=== PATIENT | female | born 1990 | race Caucasian/White ===

== ENCOUNTER 2021-04-27 17:50 | Outpatient (REF) | payer MEDICAID, SELFPAY ==
[2021-04-27 21:18] LABS: Anion Gap 7.1 mmol/L (3-11); BUN 10 mg/dL (7-18); CO2 26.9 mmol/L (21.0-32.0); CREATININE 0.6 mg/dL (0.55-1.02); Calcium 8.4 mg/dL (8.5-10.1); Calculated LDL 72 mg/dL (<100); Chloride 106 mmol/L (98-107); Cholesterol 135 mg/dL (<200); Glucose 87 mg/dL (74-106); HDL Cholesterol 54 mg/dL (40-60); Potassium 4.4 mmol/L (3.5-5.1); Sodium 140 mmol/L (136-145); Triglyceride 46 mg/dL (<150)
[2021-05-01 09:20] LABS: Hepatitis C Ab w Rflx HCV PCR Negative (Negative)
== END 2021-04-27 17:51 | disposition home or self-care (01) ==
LOC: NCHCN 17:50
PROVIDERS: PCP Nurse Practitioner Family; Visit Provider Nurse Practitioner Family
DX: Z00.00 Encounter for general adult medical examination without abnormal findings (principal)
CPT/HCPCS: 80048; 80061; 86803

== ENCOUNTER 2021-06-15 17:09 | Outpatient (REF) | payer MEDICAID, SELFPAY ==
--- NOTE | 2021-06-15 16:30 | PAPFT_PTH ---
PATIENT: Alexandra Marte LOC: [facility]#:[id number] AGE/SX: 31/F ROOM: RE06/15/[address]: Tess Buckner : 1990 BED: DIS: 06/15/2021 SPEC #: [id number] RECD: 06/16/21 13:07 STATUS: IVELISSE REJair #: [id number] VINOD: 06/15/21 16:[address]: Tess Buckner DEPT: [facility] Cytology RECD BY: Corazon Arrington Tissues: 1 - CX/ENDOCX FOR PAP SMEARS Procedures: PAP THIN PREP/[facility] Screening HPV DNA PROBE Comments: [id number] (CHLAMYDIA/GC)
[2021-06-19 15:33] LABS: Chlamydia Result Negative (Negative); GC Result Negative (Negative)
== END 2021-06-15 17:10 | disposition home or self-care (01) ==
LOC: NCHCN 17:09
PROVIDERS: PCP Nurse Practitioner Family; Visit Provider Nurse Practitioner Family
DX: Z12.4 Encounter for screening for malignant neoplasm of cervix (principal); Z11.3 Encounter for screening for infections with a predominantly sexual mode of transmission; Z11.51 Encounter for screening for human papillomavirus (HPV)
CPT/HCPCS: 87491; 87591; 88142; 87624

== ENCOUNTER 2022-06-21 14:19 | Outpatient (REF) | payer MEDICAID, SELFPAY ==
[2022-06-21 20:40] LABS: HCT 38.2 % (36.0-46.0); HGB 13.4 g/dL (11.2-15.7); MCH 30.5 pg (27.0-33.0); MCHC 35.1 % (32.0-36.0); MCV 87 fL (80-95); MPV 10.7 fL (8.0-11.0); Platelet Count 226 10^3/uL (130-400); RBC 4.39 10^6/uL (3.93-5.22); RDW 12.2 % (11.7-14.6); RDW-SD 38.8 fL; WBC 5.77 10^3/uL (4.4-10.8)
[2022-06-21 21:05] LABS: ALT 24 U/L (14-59); AST 19 U/L (15-37); Albumin 3.9 g/dL (3.4-5.0); Alkaline Phosphatase 47 U/L (46-116); Anion Gap 8.6 mmol/L (3-11); BUN 14 mg/dL (7-18); Bilirubin, Total 0.7 mg/dL (0.2-1.0); CO2 26.4 mmol/L (21.0-32.0); CREATININE 0.7 mg/dL (0.55-1.02); Calcium 8.3 mg/dL (8.5-10.1); Chloride 104 mmol/L (98-107); Glucose 131 mg/dL (74-106); Potassium 3.9 mmol/L (3.5-5.1); Sodium 139 mmol/L (136-145); TSH (W/Ref FT4) 0.97 uIU/mL (0.36-3.74); Total Protein 7.2 g/dL (6.4-8.2)
[2022-06-22 10:24] LABS: Hemoglobin A1C 5.6 % (<5.7)
== END 2022-06-21 14:20 | disposition home or self-care (01) ==
LOC: NCHCN 14:19
PROVIDERS: PCP Nurse Practitioner Family; Visit Provider Nurse Practitioner Family
DX: R23.2 Flushing (principal); R73.9 Hyperglycemia, unspecified; E83.51 Hypocalcemia
CPT/HCPCS: 80053; 85027; 83036; 84443

== ENCOUNTER 2022-10-01 16:40 | Outpatient (REF) | payer MEDICAID, SELFPAY | END 2022-10-01 16:41 | disposition home or self-care (01) | LOC: NCHCN 16:40 | PROVIDERS: PCP Nurse Practitioner Family; Visit Provider Nurse Practitioner Family | DX: N39.0 Urinary tract infection, site not specified (principal); F90.0 Attention-deficit hyperactivity disorder, predominantly inattentive type | CPT/HCPCS: 87086 ==

== ENCOUNTER 2023-01-02 16:29 | Outpatient (REF) | payer MEDICAID, SELFPAY ==
[2023-01-03 18:53] LABS: Parathyroid Hormone,Intact 32 pg/mL (19-88)
== END 2023-01-02 16:30 | disposition home or self-care (01) ==
LOC: NCHCN 16:29
PROVIDERS: PCP Nurse Practitioner Family; Visit Provider Registered Nurse
DX: E83.51 Hypocalcemia (principal)
CPT/HCPCS: 82306; 83735; 83970

== ENCOUNTER 2023-02-28 15:24 | Outpatient (REF) | payer MEDICAID, SELFPAY ==
--- OUTSIDE RECORDS SUMMARY | 2023-02-28 15:26 | XMS_ITS | CCD ---
Author Name Unknown Address [address] [place] [address] [id number] Organization Unknown Address [address] [place] [address] [id number] Care Team Providers Care Cargo Checker Name Role Phone JODYGOOD MORRISON Nhung Attending Physician [phone] Vital Signs Vital Sign Value Unit Date/Time Recent/Initial ? BMI (Body Mass Index) 27.41 kg/m^2 11/09/2022 15: 14 Initial VS Weight Measured 175 lbs 11/09/2022 15:14 Ini tial VS Height 67 in 11/09/2022 15:14 Initial VS BSA (Body Surface Area) 1.94 m^2 11/09/2022 1 5:14 Initial VS BP Systolic 108 mmHg 11/16/2022 10:15 Initial VS BP Diastolic 60 mmHg 11/16/2022 10:15 Initia l VS Respiratory Rate 18 bpm 11/16/2022 10:15 In itial VS Heart Rate 80 bpm 11/16/2022 10:15 Initial VS O2 % BldC Oximetry 97 % 11/16/2022 10:15 Initial VS Body Temperature 36 degrees 11/16/2022 10:15 In itial VS Allergies Allergy Code Allergy Type Reaction Status LORTAB 5/325 [id number] Drug allergy Active Procedures Procedure Code Procedure Type Date Bx, Soft Tissue, Back/Flank; Superficial 14489 CPT 11/16/2022 Anesthesia, Head, Neck, Post Trunk Integumentary, Muscles/Nerves 41551 CPT 11/16/2022 History of Immunizations Unknown or Not Available. Problems Unknown or Not Available. 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 Patient Decision Aids Unknown or Not Available. 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 If you have left the hospital and have any questions, please contact your primary care physician. Chief Complaint and Reason For Visit Unknown or Not Available. Function Status Unknown or Not Available. Plan of Care Unknown or Not Available. Referral/Transition of Care Unknown or Not Available.
--- OUTSIDE RECORDS SUMMARY | 2023-02-28 15:27 | XMS_ITS | CCD ---
Author Name Unknown Address [address] [place] [address] [id number] Organization Unknown Address [address] [place] [address] [id number] Care Team Providers Care Associate Material Handler Name Role Phone GOOD VERA Attending Physician [phone] [employer] [place] Rounding (Secondary) Physici an [phone] Vital Signs Unknown or Not Available. Allergies Unknown or Not Available. Procedures Unknown or Not Available. History of Immunizations Unknown or Not Available. Problems Unknown or Not Available. Results Unknown or Not Available. Active Medications Unknown or Not Available. Medications Administered During Visit Unknown or Not Available. Encounters Encounter Diagnosis Diagnosis Code Start Date Person consulting for explan ation of examination or test findings Z712 03/07/2022 Social History Unknown or Not Available. Patient Decision Aids Unknown or Not Available. Discharge Instructions You were admitted to [facility] on 03/07/2022 14:25 with a principal diagnosis of Person consulting for explanation of examination or test findings You were discharged from [facility] on 03/07/2022 00:00 Should you have any questions prior to [...]
--- OUTSIDE RECORDS SUMMARY | 2023-02-28 15:28 | XMS_ITS | CCD ---
Author Name Unknown Address [address] [place] [address] [phone] Organization Unknown Address [address] [place] [address] [phone] Care Team Providers Care Brim Pouncer Name Role Phone GOOD VERA Attending Physician [phone] [place] Rounding (Secondary) Physici an [phone] Vital Signs Unknown or Not Available. Allergies Unknown or Not Available. Procedures Unknown or Not Available. History of Immunizations Unknown or Not Available. Problems Unknown or Not Available. Results Unknown or Not Available. Active Medications Unknown or Not Available. Medications Administered During Visit Unknown or Not Available. Encounters Encounter Diagnosis Diagnosis Code Start Date Pre-surgery evaluation [id number] Social History Unknown or Not Available. Patient Decision Aids Unknown or Not Available. Discharge Instructions You were admitted to [facility] on 10/17/2022 08:54 with a principal diagnosis of Encounter for other preprocedural examination You were discharged from [facility] on 10/17/2022 00:00 Should you have any questions prior [...]
[2023-02-28 16:46] LABS: Vitamin D 25 Total 42.9 ng/mL (30-100)
== END 2023-02-28 15:25 | disposition home or self-care (01) ==
LOC: NCHCN 15:24
PROVIDERS: PCP Nurse Practitioner Family; Visit Provider Registered Nurse
DX: E55.9 Vitamin D deficiency, unspecified (principal); E83.51 Hypocalcemia
CPT/HCPCS: 82306; 82310